=== PATIENT | female | born 1990 | race Hispanic/Latino ===

== ENCOUNTER 2022-12-07 22:45 | Emergency (ER) | payer OTHER ==
[~2022-12-07] VITALS: Ht 167.6 cm; Wt 96.2 kg
[2022-12-07] MEDS ORDERED: ACETAMINOPHEN 325 MG TAB PO STA (23:11)
[2022-12-07] MEDS ORDERED: DEXAMETHASONE SOD PHOS 10 MG/1 ML VIAL IM STA (23:11)
[2022-12-08] MEDS ORDERED: ACETAMINOPHEN 325 MG TAB ONE (00:20)
[2022-12-08] MEDS ORDERED: DEXAMETHASONE SOD PHOS INJ 4 MG/ML SDV ONE (00:20)
[2022-12-08] MEDS ORDERED: PREDNISONE20 MG PO (00:30)
[2022-12-08] MEDS ORDERED: AZITHROMYCIN250 MG PO (00:30)
[2022-12-08 00:40] VITALS: BP 126/72
== END 2022-12-08 00:40 | disposition home or self-care (01) ==
LOC: FSED 22:48
DX: R50.9 Fever, unspecified (principal); J03.90 Acute tonsillitis, unspecified
CPT/HCPCS: 83518; 86308; 87400; 96372; 99282; J1100